=== PATIENT | female | born 1985 | race Caucasian/White ===

== ENCOUNTER 2024-07-02 16:23 | Emergency (ER) | payer SELFPAY ==
[~2024-07-02] VITALS: Ht 170.2 cm; Wt 65.0 kg
[2024-07-02 16:31] VITALS: TEMP 37.1; O2SAT 99
[2024-07-02 17:24] LABS: BASOPHILS % 0.7 % (0.0-2.0); HEMOGLOBIN. 13.2 g/dL (12.0-16.0); LYMPHOCYTES % 18.7 % (20.0-50.0); MEAN CORPUSCULAR HEMOGLOBIN 30.8 pg (28.0-32.0); MEAN CORPUSCULAR HGB CONC 33.8 g/dL (31.0-37.0); MEAN CORPUSCULAR VOLUME 91.3 fL (81.0-99.0); MEAN PLATELET VOLUME 9.3 fl (7.4-10.4); MONOCYTES % 5.8 % (2.0-8.0); NEUTROPHILS % 72.8 % (40.0-76.0); PLATELET 241 x1000/uL (130-400); RED BLOOD CELL COUNT 4.27 mill/uL (4.2-5.4); RED CELL DISTRIBUTION WIDTH 13.4 % (11.6-14.6); WHITE BLOOD COUNT 13.3 x1000/uL (4.5-11.0)
[2024-07-02] MEDS: ACETAMINOPHEN 325MG TABLET PO ONE (17:24)
[2024-07-02] MEDS: SODIUM CHLORIDE 0.9% 1,000 ML IV ONE (17:25)
[2024-07-02 17:36] LABS: CHLORIDE 107 mEq/L (98-107); POTASSIUM 4.1 mEq/L (3.5-5.1); SODIUM 139 mEq/L (136-145)
[2024-07-02 17:38] LABS: CARBON DIOXIDE 21 mEq/L (21-32)
[2024-07-02 17:39] LABS: CREATININE 0.6 mg/dL (0.6-1.0); GLUCOSE 93 mg/dL (70-105); UREA NITROGEN BLOOD 6 mg/dL (9-23)
[2024-07-02 17:40] LABS: B-HCG QUANTITATIVE 288 mIU/mL (<3)
[2024-07-02 17:41] LABS: ALANINE AMINOTRANSFERASE 16 IU/L (10-49); ALBUMIN 4.3 g/dL (3.2-4.8); ASPARTATE AMINOTRANSFERASE 23 IU/L (<34); BILIRUBIN DIRECT 0.1 mg/dL (<=3.0); BILIRUBIN TOTAL 0.4 mg/dL (0.1-1.0)
[2024-07-02 19:40] LABS: CLARITY URINE CLOUDY (CLEAR); COLOR URINE ORANGE (YELLOW); GLUCOSE URINE NEGATIVE (NEGATIVE); KETONES URINE 2+ (NEGATIVE); LEUKOCYTE ESTERASE URINE 2+ (NEGATIVE); NITRITE URINE NEGATIVE (NEGATIVE); OCCULT BLOOD URINE 3+ (NEGATIVE); PH URINE 6.5 (4.5-8.0); PROTEIN URINE 4+ (NEGATIVE); SPECIFIC GRAVITY URINE 1.017 (1.005-1.030); UROBILINOGEN URINE 0.2 E.U./dL (0.2-1.0)
[2024-07-02 19:41] LABS: BACTERIA URINE 2+; RBC URINE 50-100 /hpf (0-2); SQUAMOUS EPITHELIAL CELL URINE 1+ /lpf (RARE/1+)
[2024-07-02] MEDS: NS IV ONE (21:58)
[2024-07-02] MEDS: OXYTOCIN IV ONE (21:58)
[2024-07-03 00:05] LABS: HEMATOCRIT 30.9 % (36.0-48.0); MEAN CORPUSCULAR HEMOGLOBIN 31.7 pg (28.0-32.0); MEAN CORPUSCULAR HGB CONC 35.4 g/dL (31.0-37.0); MEAN CORPUSCULAR VOLUME 89.6 fL (81.0-99.0); PLATELET 212 x1000/uL (130-400); RED BLOOD CELL COUNT 3.45 mill/uL (4.2-5.4); RED CELL DISTRIBUTION WIDTH 13.4 % (11.6-14.6); WHITE BLOOD COUNT 10.9 x1000/uL (4.5-11.0)
[2024-07-03] MEDS: SODIUM CHLORIDE 0.9% 1,000 ML IV ONE (00:33)
[2024-07-03] MEDS ORDERED: IBUP-2029 MT (06:47)
[2024-07-03 06:55] VITALS: BP 94/58; PULSE 76; RESP 15; O2SAT 98
[2024-07-03] MEDS: MISOPROSTOL 200MCG TABLET VG NR (07:00)
[2024-07-03] MEDS: MISOPROSTOL 100MCG TABLET VG ONE (07:00)
== END 2024-07-03 07:28 | disposition home or self-care (01) ==
LOC: ER 16:23
DX: O03.4 Incomplete spontaneous abortion without complication (principal)
CPT/HCPCS: 80076; 80048; 81003; 84702; 85027; 85025; 86850; 86900; 86901; 36415; 76856; 96361 ×2; 96365; 99291; 88305; J7030; Z7610; J2590